=== PATIENT | female | born 1935 | race African-American/Black ===

== ENCOUNTER 2021-01-10 17:28 | Inpatient (IN) | payer MEDICARE, MEDICAID ==
[~2021-01-10] VITALS: Ht 170.2 cm; Wt 68.0 kg
[~2021-01-10 17:28] MED LIST: GLV55; NEURONTIN; vitamin d
[2021-01-10 18:48] LABS: BASOPHILS % 0.4 % (0.0-2.0); EOSINOPHILS % 2.7 % (0.0-5.0); HEMATOCRIT. 28.3 % (36.0-48.0); HEMOGLOBIN. 9.4 g/dL (12.0-16.0); MEAN CORPUSCULAR HEMOGLOBIN 30.1 pg (28.0-32.0); MEAN CORPUSCULAR VOLUME 90.8 fL (81.0-99.0); MEAN PLATELET VOLUME 9.9 fl (7.4-10.4); MONOCYTES % 7.9 % (2.0-8.0); PLATELET 186 x1000/uL (130-400); RED BLOOD CELL COUNT 3.12 mill/uL (4.2-5.4); RED CELL DISTRIBUTION WIDTH 13.9 % (11.6-14.6)
[2021-01-10 18:50] LABS: CLARITY URINE TURBID (CLEAR); COLOR URINE DARK YELLOW (YELLOW); KETONES URINE TRACE (NEGATIVE); LEUKOCYTE ESTERASE URINE 3+ (NEGATIVE); NITRITE URINE NEGATIVE (NEGATIVE); OCCULT BLOOD URINE NEGATIVE (NEGATIVE); PH URINE >=9.0 (4.5-8.0); PROTEIN URINE 3+ (NEGATIVE); SPECIFIC GRAVITY URINE 1.026 (1.005-1.030)
[2021-01-10 18:53] LABS: CHLORIDE 110 mEq/L (98-107)
[2021-01-10 19:56] LABS: INR 1.1; PROTHROMBIN TIME 11.6 sec (9.6-11.0)
[2021-01-10] MEDS ORDERED: CEFTRIAXONE 1 G PREMIX 50 ML IV ONE (23:30)
[2021-01-11] MEDS ORDERED: ACETAMINOPHEN 325MG TABLET PO PRN ×2 (00:30)
[2021-01-11] MEDS ORDERED: ONDANSETRON HCL 4MG/2ML INJ IV PRN (00:30)
[2021-01-11] MEDS ORDERED: DIPHENHYDRAMINE 50MG/ML VIAL IV PRN (00:30)
[2021-01-11] MEDS ORDERED: LEVOFLOXACIN 500MG PREMIX 100 ML IV NR (01:00)
[2021-01-11] MEDS: SODIUM CHLORIDE 0.9% 1,000 ML IV SCH ×2 (03:32→17:28)
[2021-01-11] MEDS ORDERED: ACETAMINOPHEN 325MG TABLET GT PRN ×2 (04:30)
[2021-01-11] MEDS: CARBIDOPA/LEVODOPA 10/100MG TABLET PO SCH ×2 (06:00→14:24)
[2021-01-11] MEDS ORDERED: ENOXAPARIN 30MG/0.3ML SYR SUBCUT SCH (09:00)
[2021-01-11 11:45] VITALS: BP 85/52
[2021-01-11] MEDS ORDERED: ZINC50TA69 MT (14:03)
[2021-01-11] MEDS ORDERED: MAGN200T5 MT (14:03)
[2021-01-11] MEDS ORDERED: FAMO20TA8 MT (14:03)
[2021-01-11] MEDS ORDERED: AMLO5TAB88 MT (14:03)
[2021-01-11] MEDS ORDERED: CARB-32 PO (14:03)
[2021-01-11] MEDS ORDERED: ASCO500C18 MT (14:03)
[2021-01-11] MEDS ORDERED: FERR220S6 MT (14:03)
[2021-01-11] MEDS ORDERED: CARBIDOPA/LEVODOPA 10/100MG TABLET PO SCH (18:45)
[2021-01-11 20:00] VITALS: BP 120/78
[2021-01-11] MEDS: INSULIN LISPRO 100 UNITS/ML SUBCUT SCH (20:00)
[2021-01-11] MEDS ORDERED: DEXTROSE 50% WATER 50ML SYRINGE IV PRN (20:15)
[2021-01-11] MEDS ORDERED: POTASSIUM CHLORIDE 20MEQ/PACKET GT NR (20:15)
[2021-01-11] MEDS: BLOOD SUGAR DIAGNOSTIC STRIP TEST SCH (20:48)
[2021-01-11] MEDS ORDERED: LEVOFLOXACIN 250MG PREMIX 50 ML IV SCH (23:00)
[2021-01-12] VITALS: BP 154/93
[2021-01-12] MEDS: CARBIDOPA/LEVODOPA 25/100MG TABLET PO SCH ×4 (00:05→15:04)
[2021-01-12] MEDS: INSULIN LISPRO 100 UNITS/ML SUBCUT SCH ×3 (02:00→15:06)
[2021-01-12] MEDS: BLOOD SUGAR DIAGNOSTIC STRIP TEST SCH ×3 (02:33→14:00)
[2021-01-12] MEDS: SODIUM CHLORIDE 0.9% 1,000 ML IV SCH (02:33)
[2021-01-12 04:00] VITALS: BP 126/88
[2021-01-12 08:00] VITALS: BP 143/81
[2021-01-12 12:00] VITALS: BP 114/68
[2021-01-12 15:35] LABS: BASOPHILS % 0.3 % (0.0-2.0); EOSINOPHILS % 2.8 % (0.0-5.0); HEMATOCRIT. 26.8 % (36.0-48.0); LYMPHOCYTES % 29.5 % (20.0-50.0); MEAN CORPUSCULAR HEMOGLOBIN 30.9 pg (28.0-32.0); MEAN CORPUSCULAR VOLUME 91.6 fL (81.0-99.0); MEAN PLATELET VOLUME 9.4 fl (7.4-10.4); MONOCYTES % 8.6 % (2.0-8.0); NEUTROPHILS % 58.8 % (40.0-76.0); PLATELET 178 x1000/uL (130-400); RED BLOOD CELL COUNT 2.93 mill/uL (4.2-5.4); RED CELL DISTRIBUTION WIDTH 13.5 % (11.6-14.6)
[2021-01-12 15:52] VITALS: BP 114/68
[2021-01-12 15:55] LABS: CHLORIDE 114 mEq/L (98-107)
[2021-01-12 16:00] VITALS: BP 112/65
[2021-01-12 16:01] LABS: PHOSPHORUS 2.4 mg/dL (2.5-4.9)
== END 2021-01-12 17:15 | disposition home health service (06) | DRG 871 ==
LOC: ER 17:28 → MICUSO 20:50 → EDBEDREQTM 20:57 → EDBEDREQ 20:57 → EDBEDREQSVC 20:57 → 6EST 01-11 09:24
PROVIDERS: ADMIT Internal Medicine; ATTEND Internal Medicine
DX: A41.9 Sepsis, unspecified organism (principal); L89.154 Pressure ulcer of sacral region, stage 4; G93.41 Metabolic encephalopathy; N30.00 Acute cystitis without hematuria; D64.9 Anemia, unspecified; E11.40 Type 2 diabetes mellitus with diabetic neuropathy, unspecified; E87.6 Hypokalemia; F02.80 Dementia in other diseases classified elsewhere, unspecified severity, without behavioral disturbance, psychotic disturbance, mood disturbance, and anxiety; F17.200 Nicotine dependence, unspecified, uncomplicated; G20 Parkinson's disease; I10 Essential (primary) hypertension; L89.626 Pressure-induced deep tissue damage of left heel; Z20.822 Contact with and (suspected) exposure to COVID-19; Z82.0 Family history of epilepsy and other diseases of the nervous system; Z88.2 Allergy status to sulfonamides
CPT/HCPCS: 36415; 71045; 80048; 80053; 81003; 82962; 83036; 83605; 83735; 84100; 84145; 84484; 85025; 87077; 87186; 87426; 93005; 99291; J1200; J1650; J1815; J1956; J7030; A4315